=== PATIENT | female | born 1980 | race African-American/Black ===

== ENCOUNTER 2018-04-11 02:41 | Emergency (ER) | payer OTHER ==
[~2018-04-11] VITALS: Ht 162.6 cm; Wt 108.9 kg
[~2018-04-11 02:41] MED LIST: CHILDRENS VITAMIN; IBUPROFEN 800800 M1 PO
[2018-04-11] MEDS ORDERED: MOBIC15 MG PO (03:41)
== END 2018-04-11 04:07 | disposition home or self-care (01) ==
LOC: ER 02:41
DX: J02.9 Acute pharyngitis, unspecified (principal); Z88.0 Allergy status to penicillin

== ENCOUNTER 2018-07-23 14:25 | Emergency (ER) | payer OTHER ==
[~2018-07-23] VITALS: Ht 162.6 cm; Wt 104.8 kg
[~2018-07-23 14:25] MED LIST changes: +MOBIC15 MG PO
[2018-07-23 15:07] LABS: URINE BILIRUBIN NEGATIVE (Negative); URINE BLOOD NEGATIVE (Negative); URINE CLARITY CLEAR; URINE COLOR YELLOW; URINE GLUCOSE-RANDOM* NEGATIVE (Negative); URINE KETONES NEGATIVE (Negative); URINE LEUKOCYTES-REFLEX TRACE (Negative); URINE NITRITE-REFLEX NEGATIVE (Negative); URINE PROTEIN (DIPSTICK) NEGATIVE (Negative)
[2018-07-23] MEDS ORDERED: CLARITIN-D 121 EAC1 PO (16:01)
[2018-07-23] MEDS ORDERED: IBUPROFEN 600600 M1 PO (16:01)
[2018-07-23 16:07] VITALS: BP 132/74
== END 2018-07-23 16:08 | disposition home or self-care (01) ==
LOC: ER 14:25
PROVIDERS: Nurse Practitioner Family
DX: J06.9 Acute upper respiratory infection, unspecified (principal); Z88.0 Allergy status to penicillin